=== PATIENT | male | born 1990 | race Caucasian/White ===

== ENCOUNTER → 2018-04-29 10:09 | Outpatient (CLI) | payer OTHER, SELFPAY ==
[2018-04-29 13:01] LABS: Anion Gap 7 (5-15); BUN 16 mg/dL (7-18); BUN/Creat Ratio 19.4 RATIO (10-20); Calcium,Total 9.4 mg/dL (8.5-10.1); Chloride 105 mmol/L (98-107); Cholesterol 226 mg/dL (200); Creatinine, Serum 0.82 mg/dL (0.70-1.30); EST Glomerular Filtration Rate 121 mL/min (>60); Est Glom Filt Rate - Afr Amer 146 mL/min (>60); Glucose 86 mg/dL (74-106); High Density Lipoprotein 42 mg/dL; Potassium 4.1 mmol/L (3.5-5.1); Sodium Level 137 mmol/L (136-145); Triglycerides 51 mg/dL; Very Low Density Lipoprotein 10 mg/dL (5-40)
== END ==
PROVIDERS: Family Provider Family Medicine; PCP Family Medicine; Visit Provider Family Medicine
DX: Z00.00 Encounter for general adult medical examination without abnormal findings (principal)
CPT/HCPCS: 36415; 80048; 80061

== ENCOUNTER → 2020-08-20 08:13 | Outpatient (CLI) | payer OTHER, SELFPAY ==
--- NOTE | 2020-08-20 08:35 | VDLE_ITS ---
Reason For Study: DVT RIGHT GSV is normal. CFV is compressible, spontaneous, phasic, competent and demonstrates normal augmentation. FV is compressible, spontaneous, phasic, competent and demonstrates normal augmentation. POP V is compressible, spontaneous, phasic, competent and demonstrates normal augmentation. T/P Trunk is compressible. PTV is compressible. RT PerV is compressible. Procedure Exam performed in department. A preliminary report was called and/or faxed to [facility]. Interpretation Summary Deep veins of the right lower extremity are patent and compressible segmentally. There is no evidence of right lower extremity deep vein thrombosis. Valvular competence appears intact within the proximal deep venous system on the right . The right great saphenous vein appears patent and compressible segmentally. Ordering Physician: Tone Johnson Referring Physician: Tone Johnson Performed By: Shira Montoya RVT
== END ==
PROVIDERS: PCP Family Medicine; Referring Provider Family Medicine; Visit Provider Family Medicine
DX: I82.409 Acute embolism and thrombosis of unspecified deep veins of unspecified lower extremity (principal)
CPT/HCPCS: 93971

== ENCOUNTER → 2022-09-08 | Outpatient (CLI) | payer OTHER, SELFPAY ==
[2022-09-08 15:13] LABS: D-Dimer Quantitative (DVT/PE) < 0.27 FEU/ug/m (0.27-0.49)
[2022-09-08 15:28] LABS: Anion Gap 7 (5-15); BUN 16 mg/dL (7-18); BUN/Creat Ratio 18.3 RATIO (10-20); Calcium,Total 9.6 mg/dL (8.5-10.1); Chloride 108 mmol/L (98-107); Cholesterol 276 mg/dL (200); Creatinine, Serum 0.87 mg/dL (0.70-1.30); EST Glomerular Filtration Rate 109 mL/min (>60); Est Glom Filt Rate - Afr Amer 132 mL/min (>60); Glucose 97 mg/dL (74-106); High Density Lipoprotein 43 mg/dL; Sodium Level 139 mmol/L (136-145); Triglycerides 79 mg/dL; Very Low Density Lipoprotein 16 mg/dL (5-40)
== END | disposition home or self-care (01) ==
LOC: MFPLAB 12:31
PROVIDERS: PCP Family Medicine; Referring Provider Family Medicine; Visit Provider Family Medicine
DX: R07.89 Other chest pain (principal); I26.99 Other pulmonary embolism without acute cor pulmonale
CPT/HCPCS: 36415; 80048; 80061; 85379

== ENCOUNTER 2022-12-10 19:06 | Emergency (ER) | payer BC, SELFPAY ==
[2022-12-10 19:06] VITALS: BP 161/90; PULSE 106; RESP 18; TEMP 36.6; O2SAT 96; BMI 34.2
--- NOTE | 2022-12-10 19:45 | EDS_ITS ---
HPI History of Present Illness Chief Complaint: Lower Extremity Injury Narrative Narrative: Patient presents with right lower extremity pain and swelling he felt a lump underneath his right knee. He has a history of DVT and PE. He has no chest pain or shortness of breath he is currently not anticoagulated. No recent travel history. He does not have any pleuritic component. [facility] Medical History (Updated 12/10/22 @ 20:[address] Tone Senior MD) Hyperlipidemia Hypertension Allergy/AdvReac Type Severity Reaction Status Date / Time Penicillins Allergy Angioedema Verified 12/10/22 19:10 Social History Smoking Status: Never smoker ROS ROS ED ROS Narrative Past medical history: Reviewed, prior DVT and PE. Medications: Reviewed Social history: Noncontributory Review of systems: All systems negative except as indicated General: No fever Eyes: No visual changes ENT: No upper airway congestion, normal voice Neck: No neck pain Cardiovascular: No chest pain Respiratory: No shortness of breath or cough Musculoskeletal: Right leg pain as in HPI Skin: No rash Neurological: No memory loss, confusion or any focal weakness EXAM Physical Exam Narrative Exam Narrative: Physical exam General: Well nourished, Well developed, No Acute Distress Head: Normocephalic, Atraumatic Neck: Supple, Nontender, No lymphadenopathy Cardiovascular: Regular rate, Regular rhythm Respiratory: No distress, CTA bilaterally Abdomen: Soft, Nontender, Nondistended Back: Nontender, Normal Inspection. Negative for: CVA tenderness Extremities: Tenderness medial part of the dorsum of the knee. No calf pain no lower extremity edema. Neurovascularly intact. Skin: Normal color, No rash Neurological: Alert, Normal Strength, Normal Sensation Psychological: Normal affect Const Vital Signs: 12/10/22 19:06 Temperature 97.9 F Temperature Source Temporal Pulse Rate 106 H Respiratory Rate 18 Blood Pressure 161/90 H Blood Pressure Mean 113 Pulse Ox 96 Oxygen Delivery Method Room Air MDM MDM MDM Narrative Medical decision making narrative: Patient's ultrasound is negative for DVT does show superficial thrombophlebitis, he does not meet criteria for anticoagulation at this time, I did talk to him since he has a prior DVT that he should get a hypercoagulable work-up especially prior DVT did not seem to have any reason, no immobility or travel history or anything like that. Otherwise I will discharge her in stable condition. A. Problems addressed Possible hypercoagulable state. Possible DVT. B. Amount and/or complexity of the data (2 out of 3) 1. Venous ultrasound ordered by me and reviewed the results is negative. I considered a CBC chemistries and a D-dimer and the patient however he has normal vitals, I do not see a benefit to the CBC or chemistries. As far as the D-dimer I just did an ultrasound instead. C. Risk of complications and/or morbidity See above Radiography Diagnostic Testing: Clinical Impression(s) from Imaging Studies Venous Duplex 12/10/22 19:46 IMPRESSION: No evidence of deep venous thrombosis. Superficial thrombophlebitis of varicose veins at the knee, corresponding to the region of redness and swelling. Electronically Signed: Jordy Mayers MD at 20:42 EST , Discharge Plan Triage Chief Complaint: Lower Extremity Injury ED Provider: Tone Senior Dx/Rx/DC Orders Clinical Impression: Superficial thrombophlebitis, Hx of pulmonary embolus, Acute leg pain Instructions: ED Thrombophlebitis, Superficial Primary Care Provider: Tone Johnson Referrals: Tone Johnson MD [Primary Care Provider] - 3-5 Days (Talk to your doctor about a possible hypercoagulable work-up) Disposition Disposition: Home, Self Care
--- NOTE | 2022-12-10 19:46 | US_ITS ---
STUDY: VENOUS DOPPLER ULTRASOUND - RIGHT LOWER EXTREMITY REASON FOR EXAM: Male, 32 years old. RT MEDIAL KNEE- PAIN/ REDNESS /SWELLING TECHNIQUE: Ultrasound evaluation of the deep vein system to include sheridan-scale imaging and compression was performed. Sheridan-scale imaging and Doppler sonographic evaluation, including duplex spectral analysis and qualitative color flow sonography, was performed. COMPARISON: None. FINDINGS: Common Femoral Vein: Normal compression, spontaneity and augmentation. Normal color Doppler. Common Femoral Vein/Greater Saphenous Junction: Normal compression, spontaneity and augmentation. Normal color Doppler. Deep Femoral Vein: Normal compression, spontaneity and augmentation. Normal color Doppler. Femoral Proximal: Normal compression, spontaneity and augmentation. Normal color Doppler. Femoral Middle: Normal compression, spontaneity and augmentation. Normal color Doppler. Femoral Distal: Normal compression, spontaneity and augmentation. Normal color Doppler. Popliteal Vein: Normal compression, spontaneity and augmentation. Normal color Doppler. Posterior Tibial Vein: Normal compression, spontaneity and augmentation. Normal color Doppler. Peroneal Vein: Normal compression, spontaneity and augmentation. Normal color Doppler. There is no demonstrated deep venous thrombosis. There are tubular hypoechoic noncompressible structures and subcutaneous tissues of the right medial knee consistent with thrombosed varicose veins. US/Venous Duplex Imag/Limited/Uni IMPRESSION: No evidence of deep venous thrombosis. Superficial thrombophlebitis of varicose veins at the knee, corresponding to the region of redness and swelling. Electronically Signed: Jordy Mayers MD at 20:42 EST ,
[2022-12-10 21:03] VITALS: PULSE 76; RESP 16; O2SAT 98
== END 2022-12-10 21:05 | disposition home or self-care (01) ==
PROVIDERS: Emergency Provider Emergency Medicine; PCP Family Medicine; Visit Provider Emergency Medicine
DX: I80.01 Phlebitis and thrombophlebitis of superficial vessels of right lower extremity (principal); M79.604 Pain in right leg; E78.5 Hyperlipidemia, unspecified; I10 Essential (primary) hypertension; Z86.718 Personal history of other venous thrombosis and embolism; Z86.711 Personal history of pulmonary embolism
CPT/HCPCS: 93971; 99282

== ENCOUNTER → 2023-03-01 | Outpatient (CLI) | payer BC, SELFPAY ==
--- NOTE | 2023-03-01 11:03 | VDLE_ITS ---
Reason For Study: Hx DVT RIGHT LEFT CFV is compressible, spontaneous, phasic, Patient refused left leg. competent and demonstrates normal augmentation. FV is compressible, spontaneous, phasic, competent and demonstrates normal augmentation. POP V is compressible, spontaneous, phasic, competent and demonstrates normal augmentation. T/P Trunk is compressible. PTV is compressible. RT PerV is compressible. SFJ is INCOMPETENT and measures 0.98 x 0.87 cm. GSV proximal thigh measures 0.55 x 0.53 cm. GSV at knee measures 0.31 x 0.34 cm. GSV INCOMPETENT throughout for greater than 0.5 seconds. ASV mid thigh is INCOMPETENT for greater than 0.5 seconds and measures 0.66 x 0.68 cm. ASV 1 proximal calf is INCOMPETENT for greater than 0.5 seconds and measures 0.47 x 0.46 cm. ASV 2 proximal calf is INCOMPETENT for greater than 0.5 seconds and measures 0.30 x 0.36 cm. Connect ASV 1 proximal calf to SSV. SSV at junction is competent and measures 0.20 x 0.20 cm. Procedure This is a venous duplex using B-mode, color flow and spectral Doppler. Exam performed in department. VL/Venous Duplex US, Unilateral Interpretation Summary Deep veins of the right lower extremity are patent and compressible segmentally . There is no evidence of right lower extremity deep vein thrombosis. Valvular competence smith ears intact within the proximal deep venous system on the right . The right great saphenous vein a ppears patent and compressible segmentally. The right sapheno-femoral junction is incompetent . T he right great saphenous vein appears segmentally incompetent. The right small saphenous vein is patent and competent. An accessory saphenous vein in the right mid-thigh is incompetent. T wo accessory saphenous veins in the right proximal calf are incompetent. Ordering Physician: Rey Garces Referring Physician: Tone Johnson Performed By: Willinger, Shira, RVT
== END | disposition home or self-care (01) ==
PROVIDERS: PCP Family Medicine; Visit Provider Surgery
DX: Z86.718 Personal history of other venous thrombosis and embolism (principal)
CPT/HCPCS: 93971